=== PATIENT | female | born 1995 | race African-American/Black ===

== ENCOUNTER 2021-04-01 12:55 | Outpatient (CLI) | payer OTHER ==
[2021-04-01] MEDS ORDERED: SIMETHICONE 80 MG CHEW TAB PO ONE (14:00)
[2021-04-01] MEDS ORDERED: LACTATED RINGERS 1,000 ML IV ONE (14:00)
[2021-04-01] MEDS ORDERED: ONDANSETRON 4 MG/2 ML INJ IV ONE (14:00)
[2021-04-01 14:06] VITALS: BP 97/57
[2021-04-01 14:46] LABS: Bilirubin,Urine NEG (Negative); Blood,Urine NEG (Negative); Color,Urine Yellow (Yellow); Mucus,Urine FEW /HPF; Protein,Urine <15 mg/dL mg/dL (Negative); RBC,Urine < 1.0 /HPF (0.0-6.0); Urobilinogen,Urine < 2.0 mg/dL (<2.0)
[2021-04-01] MEDS ORDERED: ACETAMINOPHEN 500 MG TAB PO ONE (16:00)
== END 2021-04-01 16:28 | disposition home or self-care (01) ==
LOC: TRG 12:55 → APU 12:56 → TRG 16:28
PROVIDERS: ATTEND Obstetrics & Gynecology
DX: O26.892 Other specified pregnancy related conditions, second trimester (principal); M54.50 Low back pain, unspecified; Z3A.20 20 weeks gestation of pregnancy
CPT/HCPCS: 81001; 96374; J2405; 96360

== ENCOUNTER 2021-07-03 19:46 | Outpatient (CLI) | payer OTHER ==
[2021-07-03] MEDS ORDERED: LACTATED RINGERS 500 ML IV ONE (20:34)
[2021-07-03 21:08] LABS: Bacteria,Urine 4+ /HPF (Negative); Bilirubin,Urine NEG (Negative); Blood,Urine NEG (Negative); Color,Urine Straw (Yellow); Hyaline Casts,Urine 2 /LPF; Protein,Urine <15 mg/dL mg/dL (Negative); Urobilinogen,Urine < 2.0 mg/dL (<2.0)
[2021-07-03 21:10] VITALS: BP 101/79
== END 2021-07-03 21:54 | disposition home or self-care (01) ==
LOC: TRG 19:46 → APU 19:48 → TRG 21:54
PROVIDERS: ATTEND Obstetrics & Gynecology
DX: O36.8130 Decreased fetal movements, third trimester, not applicable or unspecified (principal); O26.893 Other specified pregnancy related conditions, third trimester; M54.50 Low back pain, unspecified; Z3A.33 33 weeks gestation of pregnancy
CPT/HCPCS: 81001

== ENCOUNTER 2021-08-06 09:35 | Inpatient (IN) | payer SELFPAY ==
[2021-08-06] MEDS ORDERED: fentaNYL 100 MCG/2 ML INJ IV PRN (11:00)
[2021-08-06] MEDS ORDERED: CARBOPROST TROMETHAMINE 250 MCG/1 ML INJ IM PRN (11:00)
[2021-08-06] MEDS ORDERED: BUTORPHANOL 2 MG/1 ML INJ IV PRN ×2 (11:00→14:06)
[2021-08-06] MEDS ORDERED: miSOPROStol 200 MCG TAB PR PRN (11:00)
[2021-08-06] MEDS ORDERED: ACETAMINOPHEN 325 MG TAB PO PRN (11:00)
[2021-08-06] MEDS ORDERED: LIDOCAINE (2%) 20 MG/1 ML VIAL 20 ML MDV INFILTRATI SCH (11:00)
[2021-08-06] MEDS ORDERED: ePHEDrine SULFATE 50 MG/1 ML INJ IV PRN (11:00)
[2021-08-06] MEDS ORDERED: LOPERAMIDE 2 MG CAP PO PRN (11:00)
[2021-08-06] MEDS ORDERED: NALOXONE 0.4 MG/1 ML INJ IV PRN (11:00)
[2021-08-06] MEDS ORDERED: ONDANSETRON 4 MG/2 ML INJ IV PRN ×2 (11:00→21:14)
--- NOTE | 2021-08-06 11:02 | History and Physical Report ---
History of Present Illness Date of examination: 08/06/21 Date of admission: 08/06/21 09:35 Chief complaint: Induction of labor History of present illness: 25-year-old -0-3-0 at 38+5 weeks who presents for induction of labor secondary to intrauterine growth restriction. The patient initiated care at [facility] at 18 weeks estimated gestational age. GBS status is negative. The patient denies leakage of fluid or uterine contra ctions. Past History Past Medical History: no pertinent history Past Surgical History: other (Termination of x3) Social history: single - Obstetrical History Expected Date of Delivery: 08/15/21 Actual Gestation: 38 Week(s) 5 Day(s) : 4 Para: 0 Hx # Term Pregnancies: 0 Number of Pregnancies: 0 Spontaneous Abortions: 0 Induced : 3 Number of Living Children: 0 Medications and Allergies Allergies Allergy/AdvReac Type Severity Reaction Status Date / Time mushroom Allergy Mild Anaphylaxis Verified 08/06/21 10:30 Active Meds: Active Medications Acetaminophen (Acetaminophen 325 Mg Tab) 650 mg PO Q4H PRN PRN Reason: Pain, Mild (1-3) Butorphanol Tartrate (Butorphanol 2 Mg/1 Ml Inj) 1 mg IV Q2H PRN PRN Reason: Pain, Moderate(4-6) LABOR PAIN Carboprost Tromethamine (Carboprost Tromethamine 250 Mcg/1 Ml Inj) 250 mcg IM ONCE PRN PRN Reason: Uterine Bleeding Dinoprostone (Dinoprostone 10 Mg Vag Supp) 10 mg VG Q6H PRN PRN Reason: Cervical Ripening Ephedrine Sulfate (Ephedrine Sulfate 50 Mg/1 Ml Inj) 10 mg IV Q2M PRN PRN Reason: Hypotension Fentanyl (Fentanyl 100 Mcg/2 Ml Inj) 100 mcg IV Q2H PRN PRN Reason: Pain,Severe (7-10) LABOR PAIN Oxytocin/Sodium Chloride (Pitocin/Ns 30 Unit/500ml) 30 units in 500 mls @ 2 mls/hr IV TITR BRAD; Protocol Lactated Ringer's (Lactated Ringers) 1,000 mls @ 125 mls/hr IV DIRECT BRAD Oxytocin/Sodium Chloride (Pitocin/Ns 30 Unit/500ml) 30 units in 500 mls @ 40 mls/hr IV TITR BRAD; Protocol Lidocaine (Lidocaine (2%) 20 Mg/1 Ml Vial 20 Ml Mdv) 20 ml INFILTRATI ONCE@1100 BRAD Stop: 08/07/21 10:59 Loperamide HCl (Loperamide 2 Mg Cap) 2 mg PO ONCE PRN PRN Reason: give with Hemabate Methylergonovine Maleate (Methylergonovine Maleate 0.2 Mg/Ml Vial) 0.2 mg IM ONCE PRN PRN Reason: Uterine Bleeding Mineral Oil (Mineral Oil 30 Ml Oral Liqd) 30 ml PO QHS PRN PRN Reason: Constipation Misoprostol (Misoprostol 200 Mcg Tab) 800 mcg IN ONCE PRN PRN Reason: Uterine Bleeding Naloxone HCl (Naloxone 0.4 Mg/1 Ml Inj) 0.1 mg IV Q2MIN PRN PRN Reason: Res Rate </= 8 or 02 SAT < 92% Ondansetron HCl (Ondansetron 4 Mg/2 Ml Inj) 4 mg IV Q8H PRN PRN Reason: Nausea And Vomiting Oxytocin (Oxytocin 10 Unit/1 Ml Inj) 10 unit IM ONCE PRN PRN Reason: Uterine Bleeding Terbutaline Sulfate (Terbutaline 1 Mg/1 Ml Inj) 0.25 mg SUB-Q ONCE PRN PRN Reason: Hyperstimulation/Hypertonicity Review of Systems All systems: negative - Vital Signs Vital signs: Vital Signs Pulse BP Pulse Ox 93 H 116/76 100 08/06/21 10:31 08/06/21 10:31 08/06/21 10:31 Temp Pulse Resp BP Pulse Ox 102 H 116/76 99 08/06/21 10:51 08/06/21 10:31 08/06/21 10:51 - Physical Exam Breasts: Positive: deferred Cardiovascular: Regular rate Lungs: Positive: Clear to auscultation Abdomen: Positive: normal appearance Results All other labs normal. Assessment and Plan - Patient Problems (1) Intrauterine growth restriction affecting care of mother Current Visit: Yes Status: Acute Plan to address problem: Admit for induction of labor
[2021-08-06 11:57] LABS: Hematocrit 35.3 % (30.3-42.9); Hemoglobin 11.8 gm/dl (10.1-14.3); Mean Corpuscular HGB Conc 34 % (30-34); Mean Corpuscular Volume 90 fl (79-97); Platelet Count 220 K/mm3 (140-440); Red Blood Count 3.91 M/mm3 (3.65-5.03); Red Cell Distribution Width 15.3 % (13.2-15.2)
[2021-08-06] MEDS ORDERED: METHYLERGONOVINE MALEATE 0.2 MG/ML VIAL IM PRN (12:00)
[2021-08-06] MEDS ORDERED: OXYTOCIN 10 UNIT/1 ML INJ IM PRN (12:00)
[2021-08-06] MEDS ORDERED: OXYTOCIN DRIP 30 UNITS/500 ML BAG IV SCH ×2 (12:00)
[2021-08-06] MEDS ORDERED: MINERAL OIL 30 ML ORAL LIQD PO PRN (12:00)
[2021-08-06] MEDS ORDERED: DINOPROSTONE 10 MG VAG SUPP VG PRN (12:00)
[2021-08-06] MEDS ORDERED: TERBUTALINE 1 MG/1 ML INJ SUB-Q PRN (12:00)
[2021-08-06] MEDS: LACTATED RINGERS 1,000 ML IV SCH ×3 (20:32→23:52)
[2021-08-06] MEDS ORDERED: NalbUPHINE 10 MG/1 ML INJ IV PRN (21:14)
[2021-08-06] MEDS ORDERED: diphenhydrAMINE 50 MG/ML VIAL IV PRN (21:14)
[2021-08-06] MEDS ORDERED: NALOXONE 2 MG/2 ML INJ IV PRN (21:14)
[2021-08-06] MEDS ORDERED: LACTATED RINGERS 250 ML IV SOLN IV ONE (21:14)
--- NOTE | 2021-08-06 21:41 | Anesthesia Consultation ---
Anesthesia Consult and Med Hx Date of service: 08/06/21 - Airway Anesthetic Teeth Evaluation: Good ROM Head & Neck: Adequate Mental/Hyoid Distance: Adequate Mallampati Class: Class II Intubation Access Assessment: Probably Good - Pulmonary Exam CTA: Yes - Cardiac Exam Cardiac Exam: RRR - Pre-Operative Health Status ASA Pre-Surgery Classification: ASA2 Proposed Anesthetic Plan: Epidural - Pulmonary Hx Smoking: No Hx Asthma: No COPD: No Hx Pneumonia: No Hx Sleep Apnea: No - Cardiovascular System Hx Hypertension: No Hx Heart Attack/AMI: No Hx Angina: No - Central Nervous System Hx Seizures: No Hx Psychiatric Problems: No - Gastrointestinal Hx Gastroesophageal Reflux Disease: No - Endocrine Hx Renal Disease: No Hx End Stage Renal Disease: No Hx Liver Disease: No Hx Insulin Dependent Diabetes: No Hx Non-Insulin Dependent Diabetes: No Hx Hypothyroidism: No Hx Hyperthyroidism: No - Hematic Hx Anemia: No Hx Sickle Cell Disease: No - Other Systems Hx Alcohol Use: No
--- NOTE | 2021-08-06 21:42 | Progress Note ---
Labor Epidural - Labor Epidural Start Time: 21:26 Stop Time: 21:32 Performed by:: RAMANDEEP JARVIS Procedure: Patient is requesting epidural for labor and pain. H&P, labs were reviewed. Patient IDed, all questions and concerns were answered, and consent was signed. Timeout was performed at bedside. Patient in sitting position. Sterile prep and drape was performed. 3ml of 1% lidocaine skin wheal at L[3]- L [4]. 17- gauge Tuohy epidural needle was advanced to loss of resistance with air technique 5cm. Negative CSF negative blood. Epidural catheter advanced to [10] centimeters. [negative] Aspiration [negative] test dose. Sterile dressing applied. Patient tolerated procedure.
[2021-08-06] MEDS: ePHEDrine SULFATE 50 MG/1 ML INJ IV PRN ×3 (22:00→22:26)
[2021-08-06] MEDS ORDERED: fentaNYL-BUPIV 2 MCG/ML-0.125% 200 MCG/100 ML BAG EPIDURAL SCH (22:00)
--- NOTE | 2021-08-07 06:06 | Procedure Note ---
OB Delivery Note - Delivery Date of Delivery: 08/07/21 Surgeon: TERESA MCNEILL Estimated blood loss: 200cc - Vaginal Delivery presentation: vertex Delivery position: OA Intrapartum events: other(please specify) (Intrauterine growth restriction) Delivery monitor: external FHT, external uterine Route of delivery: Delivery placenta: spontaneous Delivery cord: 3 umbilical vessels Episiotomy: none Delivery laceration: 2nd degree Delivery repair: vicryl Anesthesia: local, epidural Delivery comments: The patient progressed to complete complete +1 and post to deliver a liveborn female with Apgars of 8 and 9 weight 6 pounds 6 ounces. After delivery of the head the shoulders delivered without difficulty. The cord was clamped and cut and the infant was bulb suctioned and the infant was then placed on the patient's abdomen. The placenta delivered spontaneously intact with a three- vessel cord. The patient sustained a second-degree midline laceration that was repaired with 2-0 Vicryl in a normal fashion. The site was infiltrated with lidocaine. Estimated blood loss of 200 mL - A at 1 minute: 8 at 5 minutes: 9 Gender: Female (Weight 6 pounds 6 ounces)
[2021-08-07] MEDS ORDERED: PROMETHAZINE 25 MG RECT SUPP PR PRN (06:07)
[2021-08-07] MEDS ORDERED: WITCH HAZEL/ GLYCERIN PAD TP PRN (06:07)
[2021-08-07] MEDS ORDERED: LANOLIN/ZINC/DIMETHICONE (LANSINOH) 7 GM TP PRN (06:07)
[2021-08-07] MEDS ORDERED: diphenhydrAMINE 25 MG CAP PO PRN (06:07)
[2021-08-07] MEDS ORDERED: ACETAMINOPHEN 325 MG TAB PO PRN (06:07)
[2021-08-07] MEDS ORDERED: HYDROcodone/ACETAMINOPHEN 5-325 MG TAB PO PRN (06:07)
[2021-08-07] MEDS ORDERED: MAGNESIUM HYDROXIDE (MOM) ORAL LIQD UDC PO PRN (06:07)
[2021-08-07] MEDS ORDERED: PROMETHAZINE 25 MG TAB PO PRN (06:07)
[2021-08-07] MEDS ORDERED: ONDANSETRON 4 MG/2 ML INJ IV PRN (06:07)
--- NOTE | 2021-08-07 12:34 | Post Anesthesia Evaluation ---
- Post Anesthesia Evaluation Patient Participated: Yes Airway Patent: Yes Stable Respiratory Function: Yes Nausea/Vomiting: No Temp > 96.8F: Yes Pain Manageable: Yes Adequeate Hydration: Yes Anesthesia Complications: No Block Receding Appropriately: Yes Patient on Ventilator: No
[2021-08-07] MEDS: IBUPROFEN 800 MG TAB PO SCH ×2 (12:36→18:57)
[2021-08-07 21:17] LABS: Hematocrit 30.5 % (30.3-42.9); Hemoglobin 10.1 gm/dl (10.1-14.3)
[2021-08-08] MEDS: IBUPROFEN 800 MG TAB PO SCH ×3 (00:27→14:30)
--- NOTE | 2021-08-08 11:12 | Discharge Summary ---
Providers - Providers Date of Admission: 08/06/21 09:35 Date of discharge: 08/08/21 Attending physician: NIRU MORIN Primary care physician: NRIU MORIN Hospitalization Reason for admission: induction of labor Delivery: Episiotomy: none Laceration: 2nd degree Other procedures: none complications: none Discharge diagnosis: IUP at term delivered baby: female Hospital course: unremarkable Condition at discharge: Stable Disposition: 01 HOME / SELF CARE / HOMELESS Plan - Discharge Medications Prescriptions: Ibuprofen [Motrin] 800 mg PO Q8HR PRN #40 tablet PRN Reason: Pain, Mild (1-3) HYDROcodone/APAP 5-325 [[place] 5/325] 1 each PO Q6HR PRN #15 tablet PRN Reason: Pain - Provider Discharge Summary Activity: routine, no sex for 6 weeks, no heavy lifting 4 weeks, no strenuous exercise Diet: routine Instructions: routine Additional instructions: [] Smoking cessation referral if applicable(refer to patient education folder for contact #) [] Refer to [facility]'s [facility] Booklet Call your doctor immediately for: * Fever > 100.5 * Heavy vaginal bleeding ( >1 pad per hour) * Severe persistent headache * Shortness of breath * Reddened, hot, painful area to leg or breast * Drainage or odor from incision. * Keep incision clean and dry at all times and follow doctor's instructions regarding bathing/showering - Follow up plan Follow up: NIRU MORIN MD [Primary Care Provider] - 14 Days Forms: [facility] Discharge Summary
[2021-08-08 14:01] VITALS: BP 114/77
== END 2021-08-08 16:30 | disposition home or self-care (01) | DRG 807 ==
LOC: LD 09:35 → OB 08-07 08:57
PROVIDERS: ADMIT Obstetrics & Gynecology; ATTEND Obstetrics & Gynecology
PROC: 10E0XZZ Delivery of Products of Conception, External Approach (ICD-10-PCS; principal; 2021-08-07)
PROC: 0KQM0ZZ Repair Perineum Muscle, Open Approach (ICD-10-PCS; 2021-08-07)
PROC: 3E0R3BZ Introduction of Anesthetic Agent into Spinal Canal, Percutaneous Approach (ICD-10-PCS; 2021-08-07)
PROC: 00HU33Z Insertion of Infusion Device into Spinal Canal, Percutaneous Approach (ICD-10-PCS; 2021-08-07)
DX: O36.5930 Maternal care for other known or suspected poor fetal growth, third trimester, not applicable or unspecified (principal); Z37.0 Single live birth; Z3A.38 38 weeks gestation of pregnancy; O70.1 Second degree perineal laceration during delivery; Z20.822 Contact with and (suspected) exposure to COVID-19; Z91.018 Allergy to other foods
CPT/HCPCS: 36415; 59200; 85014; 85018; 85027; 86592; 86850; 86900; 86901; 99211; G0378; J3490; J7121; G0463; J0595; J2405; J2590; J7120; U0003